=== PATIENT | male | born 1990 | race Caucasian/White ===

== ENCOUNTER 2020-10-05 12:02 | Emergency (ER) | payer OTHER, SELFPAY ==
[2020-10-05 22:27] LABS: SARS-CoV-2 MS2 Positive; SARS-CoV-2 N Gene Negative; SARS-CoV-2 S Gene Negative; SARS-CoV-2 by NAA Not Detected (NotDetected); SARS-CoV-2 orf1ab Negative
== END 2020-10-05 12:54 | disposition home or self-care (01) ==
LOC: BURERS 12:02
DX: B34.9 Viral infection, unspecified (principal); I10 Essential (primary) hypertension; Z20.828 Contact with and (suspected) exposure to other viral communicable diseases; Z79.899 Other long term (current) drug therapy
CPT/HCPCS: 87635; 99284; U0003

== ENCOUNTER 2021-11-10 12:13 | Emergency (ER) | payer OTHER, SELFPAY ==
[2021-11-10] MEDS ORDERED: Aspirin Chewable 81 MG TAB ONE (12:26)
[2021-11-10] MEDS ORDERED: Ondansetron PF 4 MG/2 ML Vial ONE ×2 (12:26→13:02)
[2021-11-10 12:42] LABS: #Basophils 0.1 thou/uL (0.0-0.2); #Monocytes 0.4 thou/uL (0.11-0.59); #Neutrophils 9.7 thou/uL (1.40-6.50); %Basophils 0.5 % (0.0-1.0); %Lymphocytes 8.9 % (21.0-51.0); %Monocytes 3.3 % (0.0-10.0); %Neutrophils 87.2 % (42.0-75.0); Hemoglobin 16.4 g/dL (14.0-18.0); Mean Corpuscular HGB CONC 33.6 g/dL (32.0-36.0); Mean Corpuscular Hemoglobin 30.6 pg (27.0-31.0); Mean Corpuscular Volume 91.2 fL (78.0-98.0); Mean Platelet Volume 9.8 fL (7.4-10.4); Platelet Count 245 thou/uL (130-400); RBC Distribution Width 12.6 % (11.5-14.5); Red Blood Cell (RBC) Count 5.37 mill/uL (4.70-6.10); White Blood Cell (WBC) Count 11.1 thou/uL (4.8-10.8)
[2021-11-10 12:52] LABS: ALT (SGPT) 146 U/L (8-55); AST (SGOT) 51 U/L (5-34); Albumin 5.2 g/dL (3.5-5.0); Alkaline Phosphatase 82 U/L (40-110); Anion Gap 19 mmol/L (10-20); BUN (Urea Nitrogen) 22 mg/dL (8.9-20.6); Bilirubin, Total 1.1 mg/dL (0.2-1.2); Calc. Creatinine Clearance 0 mL/min (70-130); Calcium 10.5 mg/dL (7.8-10.44); Carbon Dioxide 26 mmol/L (22-29); Chloride 99 mmol/L (98-107); Globulin 3.6 g/dL (2.4-3.5); Glucose 121 mg/dL (70-105); Potassium 3.6 mmol/L (3.5-5.1); Protein, Total 8.8 g/dL (6.0-8.3); Sodium 140 mmol/L (136-145)
[2021-11-10] MEDS ORDERED: Morphine 4 MG/ML VIAL ONE ×2 (13:09→15:08)
[2021-11-10] MEDS ORDERED: Metoclopramide HCl 10 MG/2 ML VIAL ONE (14:31)
[2021-11-10 14:43] LABS: Troponin I Less than 0.010 ng/mL (< 0.028)
[2021-11-11 15:21] LABS: SARS-CoV-2 PCR by NAA Not Detected (NotDetected)
== END 2021-11-10 16:38 | disposition home or self-care (01) ==
LOC: BURERS 12:13
DX: R07.9 Chest pain, unspecified (principal); Z20.822 Contact with and (suspected) exposure to COVID-19; I10 Essential (primary) hypertension; F17.220 Nicotine dependence, chewing tobacco, uncomplicated; Z79.899 Other long term (current) drug therapy
CPT/HCPCS: 36415; 71045; 80053; 83880; 84484; 85025; 85379; 93005; 96374; 96375; 96376; J2270; J2405; J2765; U0003; U0005